=== PATIENT | male | born 1990 | race Caucasian/White ===

== ENCOUNTER 2024-06-09 15:29 | Inpatient (IN) | payer OTHER ==
[2024-06-09 16:59] VITALS: BMI 26.4
[2024-06-09] MEDS ORDERED: POLYETHYLENE GLYCOL (HEALTHYLAX) 3350 17 GM PACKET PO PRN (17:11)
[2024-06-09] MEDS ORDERED: IBUPROFEN 400 MG TABLET (FP) PO PRN (17:11)
[2024-06-09] MEDS ORDERED: guaiFENesin 600 MG TABLET.ER (FP) PO PRN (17:11)
[2024-06-09] MEDS ORDERED: ACETAMINOPHEN 325 MG TABLET (FP) PO PRN (17:11)
[2024-06-09] MEDS ORDERED: BENZOCAINE/MENTHOL (CHLORASEPTIC ) LOZENGE MM PRN (17:11)
[2024-06-09] MEDS ORDERED: BENZONATATE 200 MG CAPSULE PO PRN (17:11)
[2024-06-09] MEDS ORDERED: P-EPHED 60MG/TRIPROLIDI 2.5MG TABLET PO PRN (17:11)
[2024-06-09] MEDS ORDERED: MAG HYDROX/AL HYDROX/SIMETH 30 ML UNIT-DOSE CUP PO PRN (17:11)
[2024-06-09] MEDS ORDERED: ONDANSETRON *ODT* 4 MG TABLET SL PRN (17:11)
[2024-06-09] MEDS ORDERED: NALOXONE (NARCAN) HCL 4 MG/0.1 ML SPRAY NS PRN (17:11)
[2024-06-09] MEDS ORDERED: NICOTINE POLACRILEX 2 MG GUM BUC PRN (17:11)
[2024-06-09] MEDS ORDERED: NICOTINE POLACRILEX 2 MG LOZENGE BC PRN (17:11)
[2024-06-09] MEDS ORDERED: IBUPROFEN 600 MG TABLET (FP) PO PRN (17:11)
[2024-06-09] MEDS ORDERED: MAGNESIUM HYDROX 2400MG/30ML ORAL SUSPENSION 30 ML CUP PO PRN (17:11)
[2024-06-09] MEDS ORDERED: BISMUTH SUBSALICYLATE 524 MG/30 ML PO PRN (17:11)
[2024-06-09] MEDS ORDERED: LOPERAMIDE HCL 2 MG CAPSULE PO PRN (17:11)
[2024-06-09] MEDS ORDERED: METHOCARBAMOL 500 MG TABLET PO PRN (17:11)
[2024-06-09] MEDS ORDERED: DICYCLOMINE HCL 10 MG CAPSULE PO PRN (17:11)
[2024-06-09] MEDS ORDERED: diazePAM 5 MG TABLET PO PRN (17:16)
[2024-06-09 18:19] VITALS: TEMP 97.7
[2024-06-09] MEDS ORDERED: methaDONE HCL 10 MG TABLET PO PRN (19:13)
[2024-06-09 21:09] VITALS: BP 134/71; PULSE 86; RESP 16
[2024-06-09] MEDS ORDERED: MELATONIN 5 MG TABLETS PO SCH (22:00)
[2024-06-09] MEDS ORDERED: THIAMINE 100 MG TABLET PO SCH (22:00)
[2024-06-09] MEDS: NALOXONE (NYS OPIOID OVERDOSE PROGRAM) 4 MG/0.1 ML SPRAY NS SCH (22:03)
[2024-06-10] MEDS ORDERED: FLU VACCINE (FLULAVAL) PF 45 MCG/0.5 ML SYRINGE 2024-2025 IM ONE (10:00)
[2024-06-10] MEDS ORDERED: PRENATAL VITAMINS W/ FOLIC ACID TABLET (FP) PO SCH (10:00)
[2024-06-10] MEDS ORDERED: methaDONE HCL 10 MG TABLET PO ONE (10:00)
[2024-06-11] MEDS ORDERED: cloNIDine HCL 0.1 MG TABLET PO PRN
[2024-06-11] MEDS ORDERED: methaDONE HCL 40 MG DISPERSABLE TABLET PO ONE (10:00)
[2024-06-12] MEDS ORDERED: methaDONE HCL 40 MG DISPERSABLE TABLET PO ONE (10:00)
[2024-06-12] MEDS ORDERED: methaDONE 40 MG, methaDONE 10 MG PO ONE (10:00)
[2024-06-13] MEDS ORDERED: methaDONE HCL 40 MG DISPERSABLE TABLET PO ONE (10:00)
[2024-06-13] MEDS ORDERED: methaDONE 40 MG, methaDONE 20 MG PO ONE (10:00)
[2024-06-14] MEDS ORDERED: methaDONE HCL 40 MG DISPERSABLE TABLET PO ONE (10:00)
[2024-06-14] MEDS ORDERED: methaDONE 40 MG, methaDONE 30 MG PO ONE (10:00)
== END 2024-06-09 22:14 | disposition left against medical advice (07) | DRG 770 ==
LOC: YASAS 15:29 → Y3N 17:51
PROVIDERS: ADMIT Allergy & Immunology; ATTEND Surgery
PROC: HZ2ZZZZ Detoxification Services for Substance Abuse Treatment (ICD-10-PCS; principal; 2024-06-09)
DX: F11.23 Opioid dependence with withdrawal (principal); F12.20 Cannabis dependence, uncomplicated; F17.210 Nicotine dependence, cigarettes, uncomplicated
CPT/HCPCS: 93005; 93010